=== PATIENT | male | born 1950 | race Caucasian/White ===

== ENCOUNTER 2023-06-25 20:54 | Emergency (ER) | payer MEDICARE, SELFPAY ==
[2023-06-25 21:11] VITALS: BP 159/84; PULSE 100; RESP 18; TEMP 37.6; O2SAT 98; BMI 29.5
[2023-06-25 22:19] VITALS: PULSE 89; RESP 14; O2SAT 92
[2023-06-25 22:30] VITALS: BP 164/81; PULSE 90; RESP 16; O2SAT 93
--- NOTE | 2023-06-25 22:46 | ED.ABDPAIN ---
HPI - Abdominal Pain General Chief Complaint: Abdominal Pain Stated Complaint: upper right abd pain Time Seen by Provider: 06/25/23 22:44 Source: patient and family Mode of arrival: Ambulatory History of Present Illness HPI narrative: Patient comes to the ED today with right-sided chest pain. The pain started a few hours after a episode of vomiting overnight last night. Of note, he had a significant right chest wall injury a couple of months ago while skiing in [place]. He had quite a bit of chest pain in the ribs from that injury but it had been gradually improving. It was much better until last night after the severe vomiting episode. The pain today persist and is quite severe. It is clearly worse with a deep breath. It is really non-existent if he holds still and does not breathe deeply. It has not associated with fever. He has no abdominal pain per se. The pain is along the ribs at about the 10th rib in the midaxillary to midclavicular line. Patient History Social History Smoking Status: Never smoker Smoking Status: Never smoker Substance Use Type: does not use Exam Narrative Exam Narrative: GENERAL: Alert, cooperative and in no distress. HEAD: Atraumatic. Normocephalic. EYES: Sclera are clear without icterus. Extraocular movements are full. NECK: Supple. Full range of motion. CARDIOVASCULAR: Normal rate and rhythm without murmur gallop or rub. RESPIRATORY: Clear to auscultation. Breath sounds equal bilaterally. No wheezes, rales, or rhonchi. GASTROINTESTINAL: Abdomen soft, non-tender, nondistended. No Daugherty sign. No tenderness in the abdomen at all. EXTREMITIES: No edema, full range of motion. No obvious trauma. BACK: Normal inspection, no CVA tenderness. NEURO: Nonfocal examination, normal speech, normal gait. SKIN: No rash or erythema of visible areas PSYCH: Normally oriented. Normal range of affect. Appropriate behavior I can not reproduce the pain by palpating the chest wall. Initial Vital Signs Initial Vital Signs: Vital Signs Temperature 99.6 F 06/25/23 21:11 Pulse Rate 100 H 06/25/23 21:11 Respiratory Rate 18 06/25/23 21:11 Blood Pressure 159/84 H 06/25/23 21:11 Pulse Oximetry 98 06/25/23 21:11 Oxygen Delivery Method Room Air 06/25/23 21:11 Course Vital Signs Vital signs: Vital Signs - 8 hr 06/25/23 21:11 06/25/23 22:19 06/25/23 22:30 Temperature 99.6 F Pulse Rate 100 H 89 Respiratory Rate 18 14 Blood Pressure 159/84 H 164/81 H Pulse Oximetry 98 92 Oxygen Delivery Method Room Air 06/25/23 22:30 Temperature Pulse Rate 90 Respiratory Rate 16 Blood Pressure Pulse Oximetry 93 Oxygen Delivery Method MDM - Abdominal Pain MDM Narrative Medical decision making narrative: I had a lengthy discussion with the patient and his daughter and his . I offered evaluation with blood and imaging but I do not think it is necessarily warranted because of the clear musculoskeletal nature of the pain. He has not orthostatic clinically as he stands and walks about the room. He clearly has exacerbation of the pain with coughing or hiccupping or deep breath but not at other times. There is no abdominal tenderness on exam. The pain is momentary in its severity and duration. I think the likelihood of visceral pain is exceedingly low. Discharge Plan Departure Patient Disposition: Home Clinical Impression: Chest pain, musculoskeletal Activity Restrictions/Additional Instructions: No immediately dangerous cause for your chest pain is identified or suspected. I do not think this represents visceral pain such as heart lungs gallbladder or liver. I think the pain is much more likely associated with a contusion to the chest wall and probably a cracked rib. I suspect that you exacerbated the situation with the vomiting episode overnight. I recommend Tylenol 1000 mg taken together with ibuprofen 600 mg every 6 hours for pain management. I recommend a full tidal breath hourly to prevent pneumonia. You should follow-up right away for fever, cough, abdominal pain, repeated vomiting or other severe symptoms. Thank you for trusting us with your care today. Referrals: Aly Ríos MD [Primary Care Provider] - Stand Alone Forms: Patient Portal/API
[2023-06-25 23:14] VITALS: BP 177/80; PULSE 98; O2SAT 93
== END 2023-06-25 23:20 | disposition home or self-care (01) ==
PROVIDERS: Emergency Provider Family Medicine Addiction Medicine; PCP Family Medicine
DX: R07.89 Other chest pain (principal)
CPT/HCPCS: 99281